=== PATIENT | female | born 1950 | race Caucasian/White ===

== ENCOUNTER 2022-10-11 12:23 | Outpatient (CLI) | payer MEDICARE | END 2022-10-11 12:24 | disposition home or self-care (01) | LOC: RAD 12:23 | PROVIDERS: ATTEND Physician Assistant Medical | DX: R63.4 Abnormal weight loss (principal); E55.9 Vitamin D deficiency, unspecified; R05.9 Cough, unspecified; Z86.010 Personal history of colon polyps | CPT/HCPCS: 71046 ==